=== PATIENT | male | born 1930 | race Caucasian/White ===

== ENCOUNTER 2019-03-26 13:18 | Outpatient (CLI) | payer MEDICARE, OTHER | END 2019-03-26 23:59 | disposition home or self-care (01) | LOC: RAD 13:18 | PROVIDERS: ATTEND Internal Medicine Gastroenterology | DX: R13.13 Dysphagia, pharyngeal phase (principal); G51.0 Bell's palsy; Z79.899 Other long term (current) drug therapy | CPT/HCPCS: 74230 ==